=== PATIENT | female | born 1995 | race Caucasian/White ===

== ENCOUNTER 2021-05-04 19:23 | Emergency (ER) | payer OTHER ==
[~2021-05-04] VITALS: Ht 172.7 cm; Wt 79.4 kg
[2021-05-04 23:30] VITALS: BP 127/86
[2021-05-05] MEDS ORDERED: KETOROLAC TROMETH 60MG/2ML VIAL IM ONE (01:45)
[2021-05-05] MEDS ORDERED: methylPREDNISolone SOD SUCC 125 MG/2 ML VL IM ONE (01:45)
[2021-05-05] MEDS ORDERED: BACLOFEN 10 MG TAB PO ONE (02:15)
[2021-05-05] MEDS ORDERED: traMADol HCL 50 MG TAB PO ONE (02:15)
[2021-05-05] MEDS ORDERED: NAPROXEN 500 MG TAB PO ONE (02:15)
== END 2021-05-05 03:49 | disposition home or self-care (01) ==
LOC: ER 19:26
DX: M51.26 Other intervertebral disc displacement, lumbar region (principal); M62.830 Muscle spasm of back; G89.29 Other chronic pain; Z88.1 Allergy status to other antibiotic agents; Z98.890 Other specified postprocedural states
CPT/HCPCS: 96372; 99283; J1885; J2930